=== PATIENT | female | born 1985 | race Hispanic/Latino ===

== ENCOUNTER 2022-08-17 13:54 | Emergency (ER) | payer BC ==
[~2022-08-17] VITALS: Ht 160 cm; Wt 88.5 kg
[2022-08-17] MEDS ORDERED: DULCOLAX STOOL100 MG PO (15:21)
== END 2022-08-17 15:32 | disposition home or self-care (01) ==
LOC: FSED 14:11
DX: K92.2 Gastrointestinal hemorrhage, unspecified (principal); K60.0 Acute anal fissure
CPT/HCPCS: 80053; 81003; 85025; 99283